=== PATIENT | female | born 1965 | race Caucasian/White ===

== ENCOUNTER 2016-07-13 14:46 | Emergency (ER) | payer OTHER ==
[2016-07-13 15:09] VITALS: BP 134/74; PULSE 66; TEMP 97.9; BMI 30.1
--- NOTE | 2016-07-13 15:29 | PDOC ---
History of Present Illness - General Chief Complaint: Cold Symptoms Stated Complaint: COUGH, CONGESTION Time Seen by Provider: 07/13/16 15:15 History Source: Patient Exam Limitations: No Limitations - History of Present Illness Initial Comments: CHIEF COMPLAINT: 50 y/o afebrile female with no significant PMH c/o cold symptoms for the past week. HISTORY OF PRESENT ILLNESS: The patient states she was on vacation in [place] for the past week and came home last night. While there she had cold symptoms of dry cough, nasal congestion and sore throat. She states she felt warm a few times as well. She denies FERNANDEZ, neck pain, n/v/d, SOB, abd pain, back pain. She has been taking dayquil and nyquil for her symptoms. The patient had the flu shot this year. Vital signs on arrival are within normal limits. REVIEW OF SYSTEMS: GENERAL/CONSTITUTIONAL: ?tactile fever. No chills. No weakness. No weight change. HEAD, EYES, EARS, NOSE AND THROAT: No change in vision. No ear pain or discharge. +sore throat CARDIOVASCULAR:+chest tightness. No shortness of breath. RESPIRATORY: +dry cough. No wheezing, or hemoptysis. GASTROINTESTINAL: No abd pain, nausea, vomiting, diarrhea, constipation. GENITOURINARY: No dysuria, frequency, or change in urination. MUSCULOSKELETAL: No joint or muscle swelling or pain. No neck or back pain. SKIN: No rash or easy bruising. NEUROLOGIC: No headache, vertigo, loss of consciousness, or loss of sensation. PHYSICAL EXAM: GENERAL: The patient is awake, alert, and fully oriented, in no acute distress. SHe is well appearing and ambulatory. No cough appreciated in the ER. HEAD: Normal with no signs of trauma. ENT: Pupils equal, round and reactive to light, extraocular movements intact, sclera anicteric, conjunctiva clear. Neck supple. Pharynx without erythema, edema or exudate. LUNGS: Clear to auscultation bilaterally. Normal excursion. No respiratory distress or use of accessory muscles. CV: RRR, S1/S2, no MRG. Cap refill < 2 sec. CHEST WALL: Reproducible chest pain with palpation of anterior chest wall. ABDOMEN: Soft, non-distended, non-tender even to deep palpation, no hepatomegaly or splenomegaly, no masses. EXTREMITIES: Normal range of motion, no edema. NEUROLOGICAL: Normal speech, normal gait. CN II-XII grossly intact. PSYCH: Normal mood, normal affect. SKIN: Warm, dry, normal turgor, no rashes or lesions noted. Past History - Past Medical History Allergies/Adverse Reactions: Allergies Allergy/AdvReac Type Severity Reaction Status Date / Time No Known Allergies Allergy Verified 07/13/16 15:06 Home Medications: Ambulatory Orders Naproxen [Naprosyn -] 500 mg PO BID PRN #14 tablet 04/30/16 Other medical history: none - Surgical History Cholecystectomy: Yes - Family Disease History Family Disease History: CA: Father (pancreatic) - Immunization History Immunization Up to Date: Yes - Psycho/Social/Smoking Cessation Hx Anxiety: No Suicidal Ideation: No Smoking History: Never smoked Have you smoked in the past 12 months: No Information on smoking cessation initiated: No Hx Alcohol Use: No Drug/Substance Use Hx: No Substance Use Type: None *Physical Exam - Vital Signs Last Vital Signs Temp Pulse Resp BP Pulse Ox 97.9 F 66 18 134/74 100 07/13/16 15:07 07/13/16 15:07 07/13/16 15:07 07/13/16 15:07 07/13/16 15:07 Medical Decision Making - Medical Decision Making A/P: 50 y/o afebrile female with common cold. Gave her supportive care instructions. Suggested she f/u with Dr. Bernardo in 1 week if no improvement in symptoms and return to the ER with any worsening or concerning symptoms. The patient verbalizes understanding of all instructions, has no further questions and is awaiting discharge. *DC/Admit/Observation/Transfer Diagnosis at time of Disposition: Common cold - Discharge Dispostion Disposition: HOME Condition at time of disposition: Good - Referrals Referrals: Long Bernardo MD [Primary Care Provider] - - Patient Instructions Printed Discharge Instructions: DI for Common Cold Additional Instructions: Discharge Instructions: -Take Motrin for pain every 6 hours -Take Robitussin for cough and use cough drops -Drink plenty of fluids and get plenty of rest -Follow up with your doctor in 1 week if no improvement in symptoms -Return to the ER with any worsening or concerning symptoms Print Language: LITHUANIAN
== END 2016-07-13 15:35 | disposition home or self-care (01) ==
LOC: JERFT 14:46
DX: J00 Acute nasopharyngitis [common cold] (principal)
CPT/HCPCS: 99281-25